=== PATIENT | male | born 1960 | race Caucasian/White ===

== ENCOUNTER → 2017-05-12 | Outpatient (CLI) | payer BC ==
[~2017-05-12] MED LIST: DICL75TA PO; GLUC1CAP16 PO; HYDR-3583 PO; LOSA100T PO; MULTTAB67 PO; OMEP20TA93 PO; PRAV40TA2 PO; WALKER WHEELS/F1 MIS
[2017-05-12 09:38] LABS: PROTHROMBIN TIME - PATIENT 10.3 SEC (9.8-11.6)
[2017-05-12 09:40] LABS: BILIRUBIN, URINE NEG (NEG); BLOOD, URINE NEG (NEG); GLUCOSE,URINE NEG (NEG); KETONE, URINE NEG (NEG); MUCUS URINE FEW /lpf (OCC); NITRITE,URINE NEG (NEG); SQUAMOUS EPITHELIAL CELL URINE <1 /hpf (0-5); URINE COLOR YELLOW (YELLW/STRAW); URINE LEUKOCYTE ESTERASE NEG (NEG)
[2017-05-12 09:45] LABS: AUTOMATED NEUTROPHIL # 4.6 TH/MM3 (1.8-7.7); BASOPHIL # 0.1 TH/MM3 (0-0.2); BASOPHIL % 0.7 % (0.0-2.0); EOSINOPHIL # 0.2 TH/MM3 (0-0.4); EOSINOPHIL % 2.8 % (0.0-4.0); HEMATOCRIT 38.7 % (39.0-51.0); HEMOGLOBIN 13.2 GM/DL (13.0-17.0); LYMPH % 24.3 % (9.0-44.0); LYMPHOCYTE # 1.8 TH/MM3 (1.0-4.8); MEAN CELL VOLUME 89.1 FL (80.0-100.0); MEAN CORPUSCULAR HEMOGLOBIN 30.3 PG (27.0-34.0); MEAN PLATELET VOLUME 8.5 FL (7.0-11.0); MONO % 9.1 % (0.0-8.0); MONOCYTE # 0.7 TH/MM3 (0-0.9); NEUT % 63.1 % (16.0-70.0); PLATELET COUNT 195 TH/MM3 (150-450); RED BLOOD COUNT 4.34 MIL/MM3 (4.50-5.90); RED CELL DISTRIBUTION WIDTH 13.9 % (11.6-17.2); WHITE BLOOD COUNT 7.3 TH/MM3 (4.0-11.0)
[2017-05-12 09:56] LABS: ALBUMIN 3.7 GM/DL (3.4-5.0); ALT (GPT) 30 U/L (12-78); AST (GOT) 15 U/L (15-37); BICARBONATE 28.3 MEQ/L (21.0-32.0); CALCIUM 9.1 MG/DL (8.5-10.1); CHLORIDE 103 MEQ/L (98-107); GLOMERULAR FILTRATION RATE 100 ML/MIN (>89); GLUCOSE,FASTING 111 MG/DL (74-99); SODIUM (NA) 139 MEQ/L (136-145)
--- NOTE | 2017-05-12 09:59 | RADRPT ---
EXAM DATE/TIME: 05/12/2017 09:36 [facility] COMPARISON: No previous studies available for comparison. INDICATIONS : Evaluate for pneumonia, pneumothorax or communicable disease. Pre op lumbar fusion. MEDICAL HISTORY : None. SURGICAL HISTORY : None. ENCOUNTER: Initial ACUITY: 1 day PAIN SCORE: 0/10 LOCATION: Bilateral chest FINDINGS: PA and lateral views of the chest demonstrate the lungs to be symmetrically aerated without evidence of mass, infiltrate or effusion. The cardiomediastinal contours are unremarkable. Degenerative craven es noted in the spine. Spinal stimulator leads present. CONCLUSION: No acute disease. Dionisio Carmona MD on May 12, 2017 at 9:57 Board Certified Radiologist. This report was verified electronically.
[2017-05-12 10:02] LABS: ALKALINE PHOSPHATASE 83 U/L (45-117); BLOOD UREA NITROGEN 25 MG/DL (7-18); TOTAL BILIRUBIN ADULT 0.3 MG/DL (0.2-1.0); TOTAL PROTEIN 7.1 GM/DL (6.4-8.2)
--- NOTE | 2017-05-12 15:16 | EKG ---
Date Performed: 05/12/2017 Time Performed: 08:57:32 PTAGE: 56 years EKG: Sinus rhythm NORMAL ECG NO PREVIOUS TRACING DOCTOR: Ward Dunn Interpretating Date/Time 05/12/2017 15:16:06
== END ==
LOC: CPRE 08:34
PROVIDERS: ATTEND Neurological Surgery
DX: Z01.812 Encounter for preprocedural laboratory examination (principal); Z01.811 Encounter for preprocedural respiratory examination; Z01.810 Encounter for preprocedural cardiovascular examination; Z01.818 Encounter for other preprocedural examination; M51.36 Other intervertebral disc degeneration, lumbar region
CPT/HCPCS: 36415; 71046; 80053; 81001; 85025; 85610; 85730; 87640; 87641; 93005

== ENCOUNTER 2017-05-18 06:17 | Inpatient (IN) | payer BC ==
[~2017-05-18] VITALS: Ht 185.4 cm; Wt 97.9 kg
[~2017-05-18 06:17] MED LIST changes: -HYDR-3583 PO; -WALKER WHEELS/F1 MIS
[2017-05-18] MEDS ORDERED: VANCOMYCIN 1,000 MG/NS 250 ML IV SCH ×2 (06:30)
[2017-05-18] MEDS ORDERED: SODIUM CHLORID 0.9% 500 ML IV PRN (06:30)
[2017-05-18] MEDS ORDERED: LACTATED RINGER'S 1000 ML IV PRN (06:30)
[2017-05-18] MEDS ORDERED: CHLORHEXIDINE GLUCONATE 2 % 1 PACK (2 CLOTHS) TOPICAL PRN (06:30)
[2017-05-18] MEDS ORDERED: METOPROLOL TARTRATE 25 MG TAB PO PRN (06:30)
[2017-05-18] MEDS ORDERED: POVIDONE IODINE 5% (ANTISEPSIS KIT) 4 APPLICATIONS EACH NARE PRN (06:30)
[2017-05-18] MEDS ORDERED: SODIUM CHLOR 0.9% 1000 ML INJ 1,000 ML IV SCH (06:30)
[2017-05-18] MEDS ORDERED: ACETAMINOPHEN 1000 MG/100 ML 100 ML IV ONE (07:11)
[2017-05-18] MEDS ORDERED: PROPOFOL 500 MG/50 ML INJ 150 ML ONE (07:11)
[2017-05-18] MEDS ORDERED: SUFentanil INJ 250 MCG/5 ML AMP ONE (07:11)
[2017-05-18] MEDS ORDERED: ARTIFICIAL TEARS OPTH OINT 3.5 APPLIC/3.5 GM TUBO ONE (07:12)
[2017-05-18] MEDS ORDERED: VANCOMYCIN HCL 1000 MG VIAL ONE (07:14)
[2017-05-18] MEDS ORDERED: GELFOAM SIZE 100 ONE (07:14)
[2017-05-18] MEDS ORDERED: ceFAZolin 2 GM PREMIX 50 ML ONE (07:14)
[2017-05-18] MEDS ORDERED: THROMBIN (TOPICAL) 5,000 UNIT VIAL ONE (07:14)
[2017-05-18] MEDS ORDERED: BUPIVACAINE/EPINEPHRINE 0.5% PF 30 ML VIAL ONE (07:14)
[2017-05-18] MEDS ORDERED: GENTAMICIN SULFATE 80 MG/2 ML VIAL ONE (07:15)
[2017-05-18] MEDS ORDERED: HEPARIN SODIUM - SQ 10,000 UNITS/ML VIAL ONE (08:31)
[2017-05-18] MEDS: CHLORHEXIDINE GLUCONATE 2 % 1 PACK (2 CLOTHS) TOPICAL SCH (09:00)
[2017-05-18] MEDS ORDERED: LIDOCAINE HCL 2% 50 ML VIAL ONE (09:22)
[2017-05-18] MEDS ORDERED: ROCURONIUM INJ 50 MG/5 ML SYRINGE IV PUSH ONE (12:00)
[2017-05-18] MEDS ORDERED: SODIUM CHLORIDE 0.9% 20 ML VIAL IV ONE (12:00)
[2017-05-18] MEDS ORDERED: PROPOFOL 200 MG/20 ML AMP IV ONE (12:00)
[2017-05-18] MEDS ORDERED: KETOROLAC TROMETHAMINE 30 MG/ML (IVP) VIAL IV PUSH ONE (12:00)
[2017-05-18] MEDS ORDERED: NORMOSOL R INJ 1,000 ML IV ONE (12:00)
[2017-05-18] MEDS ORDERED: PHENYLEPHRINE HCL 10 MG/ML VIAL IV ONE (12:00)
[2017-05-18] MEDS ORDERED: LACTATED RINGER'S 1000 ML INJ 2,000 ML IV ONE (12:00)
[2017-05-18] MEDS ORDERED: PHENYLEPH/NS 1000 MCG/10 ML SYR IV ONE (12:00)
[2017-05-18] MEDS ORDERED: LIDOCAINE HCL 1% PF 5 ML SYRINGE OTHER ONE (12:00)
[2017-05-18] MEDS ORDERED: ONDANSETRON HCL 4 MG/2 ML VIAL IV ONE (12:00)
[2017-05-18] MEDS ORDERED: DEXAMETHASONE SOD PHOS 4 MG/ML VIAL IV ONE (12:00)
[2017-05-18] MEDS ORDERED: RESP: ALBUTEROL 2.5 MG/3 ML NEB (PRN) INH (12:45)
[2017-05-18] MEDS ORDERED: ACETAMINOPHEN/HYDROcodone 325 MG/10 MG TAB PO PRN (12:45)
[2017-05-18] MEDS ORDERED: cloNIDine HCL 0.1 MG TAB PO/NG PRN (12:45)
[2017-05-18] MEDS ORDERED: ONDANSETRON HCL 4 MG/2 ML VIAL IV PUSH PRN (12:45)
[2017-05-18] MEDS ORDERED: ACETAMINOPHEN 325 MG TAB PO PRN (12:45)
[2017-05-18] MEDS ORDERED: diphenhydrAMINE HCL 50 MG/ML VIAL IV PUSH PRN (12:45)
[2017-05-18] MEDS ORDERED: BISACODYL 10 MG SUPP RECTAL PRN (12:45)
[2017-05-18] MEDS ORDERED: MORPHINE SULFATE 2 MG/ML INJ IV PUSH PRN (12:45)
[2017-05-18] MEDS ORDERED: NALOXONE HCL 0.4 MG/ML AMP IV PUSH PRN (12:45)
[2017-05-18] MEDS ORDERED: MENTHOL LOZENGE BUCCAL PRN (12:45)
[2017-05-18] MEDS ORDERED: DO NOT ADM ANY ANTICOAGULANT DRUGS PRN (14:54)
[2017-05-18] MEDS ORDERED: *MEPERIDINE 25 MG INJ VIAL PERIprocedural Use ONLY ONE (15:05)
[2017-05-18] MEDS ORDERED: MORPHINE SULFATE 4 MG/ML INJ ONE (15:12)
[2017-05-18] MEDS ORDERED: MIDAZOLAM HCL 2 MG/2 ML VIAL ONE (15:12)
[2017-05-18] MEDS ORDERED: *morphine SULFATE 10 MG/ML PERIprocedure ONLY ONE ×3 (15:13→15:45)
--- NOTE | 2017-05-18 15:19 | PD.OP ---
Operative Report Date of Surgery: May 18, 2017 Preoperative Diagnosis: L4-5, L5-S1 severe degenerative disk disease, degenerative spondylolithesis Postoperative Diagnosis: L4-5, L5-S1 severe degenerative disk disease, degenerative spondylolithesis Procedure: L4-L5, L5-S1 laminectomy, interbody arthrodhesis using PEEK cage and autologous bone graft, L4-L5, L5-S1 instrumental fixation using transpedicular screws and rods, L4-L5, L5-S1 posterolateral fusion using autologous bone graft and demineralized bone matrix. L3-4 posterolateral fusiopn using autologous bone graft and demineralized bone matrix. Microsurgical dissection Anesthesia: general Surgeon: Preston Lew Store Coordinator(s): Judith Shirley Operation and Findings: INDICATIONS FOR THE SURGICAL PROCEDURE Mr Mccartney is a 56 year-old male who presented with intractable mechanical back pain and case evidence of lower extremity radiculopathy. He has failed maximum nonsurgical management including multiple modalities of conservative treatment as well as pain management interventions by an interventional pain specialist. A surgical decompression and arthrodhesis were indicated as a last resourt. The cdfy-sy-lbed details of the procedure, indications, alternatives, risks and potential complications were fully discussed with the patient. The patient fully understood. All the questions were answered. No guarantees were given. The patient voiced requesting the procedure and provided informed consents. The patient was offered the alternative of delaying the procedure and continuing with nonsurgical management. DETAILS OF THE SURGICAL PROCEDURE Prior to the procedure, the surgical incision was marked in the preoperative surgical holding room, and the procedure, risks, and potential complications revisited with the patient. Placement of electrodes for intraoperative neurophysiological monitoring was completed. The patient was taken to the operative room, and following induction of general anesthesia, endotracheal intubation was performed. A Coleman catheter, bilateral JAMIE hose and sequential compression devices were placed and kept throughout the procedure. The patient was positioned prone, over a Gregory table over a Benjamin frame. All pressure in the preoperative surgical holding room points were carefully padded with eggcrate and gel mattress. The eyes were tapped shut after ointment was applied by the nesthesiologist to prevent corneal abrasion. A Rashmi hugger was placed over the exposed lower body to maintain control of the core body temperature. The electrophysiological team placed the needles and electrodes in their proper location and baseline SSEP's and motor evoked potentials were registered prior and following the positioning. The entrance to each pedicles was marked using a C arm. The lumbar region was prepped and draped in the usual sterile fashion. The surgical procedure was performed in several steps as follow: SURGICAL APPROACH Once the patient was positioned, a localizing cross-table lateral x-ray was performed with a C-arm. Two paramedian small incisions were outlined on the skin approximately 3cm from the midline. The skin incisions were made with a # 10 blade. Small bleeders were controlled with the cautery. The dissection was then carried out into deper planes and through the thoracolumbar fascia with a Bovie. The intermuscular septum was identified and the myscles were blunted dissected along the septum. The facets and transverse process of L4, L5 and S1 were exposed and the proper anatomical landmarks were identidied. A microsurgical self-retaining retractor was placed on the incision, and a localizing lateralizing cross-table x-ray was performed with an instrument underneath a lamina of the lumbar spine. There was a bilateral pars defect with gross instability of the bony structures. INSTRUMENTAL FIXATION At this point in the procedure, placement of bilateral transpedicular screws was necessary for stabilization of the spine. Initially, the entry point for the screw was selected anatomically at the junction of the facet, with the transverse process, and the pars interarticularis at L5 and at the sacrum. This was started with a TPS drill, using a 5mm cutting la, followed by the use of an awl, and then a pedicle finder. A ball-tip sounder was used to ensure the integrity of the trajectory. A tap was used to create the threads for the screws, and the trajectory was again reassessed with a ball-tip sounder. Finally bilateral transpedicular screws were carefully placed bilaterally at L4, L5, and and S1 under fluoroscopic visualization. An appropriate purchase was achieved with all screws. The position of each screw was assessed anatomically with an AP, lateral, oblique Xrays. An intraoperative scan view of the spine was then performed using the iso-centric c-arm. Each screw was then assessed electrophysiologically with a nerve stimulator. HARVESTING OF ILIAC CREST BONE A fascial incision was then made over the patient's right posterior iliac crest. The fascia was carefully opened with a Bovie and the posterior iliac crest was exposed. A small cortical window was created with an osteotome. Cancellous bone was then harvested, to be used during the interbody arthrodesis and the posterolateral fusion. Once an appropriate amount of bone was obtained , the incision was irrigated with antibiotic solution and hemostasis secured by packing the iliac crest with Surgicel. The cortical window was then repositioned and secured using 0 Vicryl sutures. The incision was irrigated and the fascia was closed with interrupted 0 Vicryl sutures. The subcutaneous tissue was approximated with 3-0 Vicryl sutures. SURGICAL DECOMPRESSION There was significant mass effect with compression of the neural structures. In order to relieve neural compression, it was necessary to perform a decompressive laminectomy, with decompression of the spinal canal and bilateral lateral recesses. Note that the scope of such decompression was significantly more extensive than the minimal exposure necessary to perform an interbody fusion, as there was extreme facet arthropathy with near complete collapse of the disk spaces and severe stenosis cause by the hyperthrophic joint facets. At this point of the procedure the operative microscope was draped in the usual sterile fashion and brought to the field. The rest of the surgical procedure was performed using microdissection technique with the exception of the closure. Under the operating microscope, a decompressive laminectomy was carried out at L5-S1 as follow: The laminae, base of the spinous processes and facets were carefully drilled exposing the ligamentum flavum. The facets were abnormal with severe facet arthropathy, vacuum facets, and mass effect over the neural structures. A broad disk protusion was contributing to compression of the neural structures and exiting L5, and S1 nerve roots. A near complete facetectomy was necessary resulting in further mechanical instability. The ligamentum flavum appeared hypertrophic, resulting on mass effect on the dorsal surface of the neural structures. The superior free border of the ligamentum flavum was elevated with a ligament dissector and the ligamentum flavum was removed with a 3 and 4 mm Kerrison forceps. The ligament was very adherent to the dural sac and during the dissection, ans extreme care was taken during the dissection. The exiting nerve roots were identified, and a wide foraminotomy was performed with a Kerrison in their trajectory towards the neural foramenat both levels. Epidural veins located laterally to the dural sac were coagulated with the bipolar cautery, and then incised using microscissors. Gentle medial retraction of the dural sac allowed me to expose the disc space for the discectomy. Upon completion of the discectomy, an excellent decompression of the neural structures was achieved. Increased motion was noted thorough the procedure, which was consistent with mechanical instability. INTERBODY ARTHRODHESIS In order to correct the narrowing of the disk space and maintain distraction of the space, and to achieve a solid interbody fusion, it was necessary the insertion of an interbody device into the disk space. Otherwise, the disk space would collapse, compromising the result of the surgical procedure. At this point of the procedure, the annulus fibrosus of the disk was carefully coagulated with a bipolar cautery and incised using an 11 bladed knife. Then, a microdiscectomy was carried out in a standard fashion using a combination of straight and up-biting pituitary forceps. A reverse angle curette was applied underneath the posterior longitudinal ligament, and used to push the disk fragments into the disk space, so they can be safely removed with a pituitary forceps. Once the discectomy was completed, it was necessary to decorticate the endplates, in order to eliminate the cartilaginous endplate and to expose healthy bone appropriate to perform the interbody fusion. The endplates at L4-5 , and L5-S1 were then thoroughly decorticated using increasing size bone isa and ring curets, eliminating the cartilaginous fragments from both, the superior and inferior endplates. A disk space distractor was applied to the pedicle screws and gentle distraction was applied. This maneuver was assisted by the use of a disk distractor. Increased motility was noted at the disk, which was consistent with instability due to facet arthropathy. Once a thorough preparation of the disk space was achieved, the disk space was irrigated with antibiotic solution, and the interbody fusion was performed by carefully impacting PPEK cages filled with autologous iliac crest bone graft. The use of several shoe impactors with different angulation, allowed me for an excellent, proper position of the interbody cage. A solid position of the cage with good purchase was achieved. The position of the cages were assessed anatomically with a probe and radiologically with the C-arm. POSTEROLATERAL FUSION The posterolateral fusion is a critical component to the procedure, to prevent future fatigue and failure of the instrumental fixation. Initially, the transverse processes of the vertebral bodies, lateral surface of the facets and the lateral gutters of the spine were carefully cleaned, eliminating all soft tissue and muscle attachments. The area was then irrigated with a large amount of antibiotic solution. Subsequently, the transverse processes, lateral surface of the facets, and lateral gutters of the spine were thoroughly decorticated using the TPS drill with a 5mm cutting la, exposing cancellous bone, in preparation for the posterolateral fusion. The incision was again irrigated with antibiotic solution. Then, the posterolateral fusion was then performed by carefully packing the lateral gutters of the spine at L4-5, and L5-S1 with autologous iliac crest bone combined with demineralized bone matrix. The facets at L3-4 on the right side werte decorticated, and a posterolateral fusion was done with autologous bone graft combined with demineralized bone matric. I packed as much bone as possible. COMPLETION OF THE INSTRUMENTATION AND CLOSURE The rods were brought to the field, applied to all the screws, and the screw caps were sequentially applied. Compression was performed between the pedicle screws, and final tightening of the screws was completed using a torque wrench. The incision was again thoroughly irrigated with several liters of antibiotic solution, and hemostasis secured with the bipolar cautery. A Valsalva Maneuver performed by the anesthesiologist failed to show any evidence of cerebrospinal fluid leak or bleeding. The incision was then closed in planes. 0 Vicryl was used in an interrupted fashion to close the thoracolumbar fascia and the superficial fascia. The subcutaneous tissue was then approximated using 3-0 Vicryl in an interrupted fashion. Special care was taken to avoid space. The skin was then closed with 4-0 Vicryl in a running, subcuticular fashion. Dermabond was applied to the skin. Each plane of closure was irrigated with antibiotic solution. At the end of the procedure the sponge, needle and instrument counts were all correct. Estimated blood loss was 150 cc or less. No blood transfusion was given. The entire procedure was performed using continuous electrophysiological monitoring of the somatosensorial evoked potentials and EMG. The patient received prophylactic antibiotics. The patient was then extubated and transferred to the recovery room in stable condition. Preston Lew MD May 18, 2017 15:19
[2017-05-18] MEDS: SODIUM CHLOR 0.9% 1000 ML INJ 1,000 ML IV SCH (16:00)
[2017-05-18] MEDS: ceFAZolin 2 GM PREMIX 50 ML IV SCH (16:20)
--- NOTE | 2017-05-18 17:32 | RADRPT ---
EXAM DATE/TIME: 05/18/2017 10:02 [facility] COMPARISON: No previous studies available for comparison. INDICATIONS : Fusion L4,L5 and L5,S1 with screw and timothy placement. MEDICAL HISTORY : None. SURGICAL HISTORY : None. ENCOUNTER: Initial ACUITY: 1 day PAIN SCORE: Non-responsive. LOCATION: Lumbar spine. FINDINGS: There is anterior and posterior fusion with pedicle screws and interbody graft from L4-S1. The verteb ral bodies are normal in alignment on the lateral view. CONCLUSION: Postsurgical changes as above. Rick Vines MD on May 18, 2017 at 17:31 Board Certified Radiologist. This report was verified electronically.
[2017-05-18 18:30] VITALS: BP 126/81; PULSE 79; RESP 18; TEMP 96.9; O2SAT 96
[2017-05-18 20:00] VITALS: BP 123/75; PULSE 82; RESP 16; TEMP 96.7; O2SAT 95
[2017-05-18] MEDS: DOCUSATE SODIUM 100 MG CAP PO SCH (20:00)
[2017-05-18] MEDS ORDERED: GLUCOSAMINE CHONDROITIN VIT C PO SCH (21:00)
[2017-05-18] MEDS: HYDROmorphone HCL PCA 6 MG/30 ML IV SCH (21:37)
[2017-05-18] MEDS: PCA - TOTAL MG DILAUDID DELIVERED PER SHIFT SCH (21:37)
[2017-05-19] VITALS: BP 111/70; PULSE 81; RESP 16; TEMP 98.3; O2SAT 97
[2017-05-19] MEDS: ceFAZolin 2 GM PREMIX 50 ML IV SCH ×2 (00:39→08:59)
[2017-05-19] MEDS: SODIUM CHLOR 0.9% 1000 ML INJ 1,000 ML IV SCH ×3 (00:39→17:44)
[2017-05-19] MEDS: CYCLOBENZAPRINE HCL 10 MG TAB PO PRN (00:46)
[2017-05-19] MEDS: HYDROmorphone HCL PCA 6 MG/30 ML IV SCH ×4 (00:50→19:16)
[2017-05-19 04:00] VITALS: BP 113/75; PULSE 86; RESP 18; TEMP 98; O2SAT 97
[2017-05-19] MEDS: PCA - TOTAL MG DILAUDID DELIVERED PER SHIFT SCH ×3 (05:52→22:00)
[2017-05-19 06:25] LABS: AUTOMATED NEUTROPHIL # 8.1 TH/MM3 (1.8-7.7); BASOPHIL % 0.1 % (0.0-2.0); HEMATOCRIT 33.8 % (39.0-51.0); HEMOGLOBIN 11.5 GM/DL (13.0-17.0); LYMPH % 9.3 % (9.0-44.0); LYMPHOCYTE # 0.9 TH/MM3 (1.0-4.8); MEAN CORPUSCULAR HEMOGLOBIN 30.3 PG (27.0-34.0); MEAN PLATELET VOLUME 8.1 FL (7.0-11.0); MONO % 10.5 % (0.0-8.0); MONOCYTE # 1.1 TH/MM3 (0-0.9); NEUT % 80.1 % (16.0-70.0); PLATELET COUNT 181 TH/MM3 (150-450); RED BLOOD COUNT 3.79 MIL/MM3 (4.50-5.90); RED CELL DISTRIBUTION WIDTH 13.7 % (11.6-17.2); WHITE BLOOD COUNT 10.2 TH/MM3 (4.0-11.0)
[2017-05-19 06:48] LABS: BICARBONATE 25.4 MEQ/L (21.0-32.0); CALCIUM 8.1 MG/DL (8.5-10.1); CREATININE 0.69 MG/DL (0.60-1.30)
[2017-05-19 07:56] VITALS: BP 122/83; PULSE 89; RESP 17; TEMP 98.2; O2SAT 96
[2017-05-19] MEDS: DOCUSATE SODIUM 100 MG CAP PO SCH ×2 (08:59→20:53)
[2017-05-19] MEDS: MULTIVITAMIN TAB PO SCH (08:59)
[2017-05-19] MEDS: PANTOPRAZOLE SOD 40 MG DELAYED RELEASE TAB PO SCH (08:59)
[2017-05-19] MEDS: PRAVASTATIN SOD 40 MG TAB PO SCH (08:59)
[2017-05-19] MEDS: CHLORHEXIDINE GLUCONATE 2 % 1 PACK (2 CLOTHS) TOPICAL SCH (09:00)
[2017-05-19] MEDS: LOSARTAN 50 MG TAB PO SCH (09:00)
--- NOTE | 2017-05-19 09:24 | HHI.NSPN ---
(Shruthi Shukla) Note Status Status: Progress Note (Shruthi Shukla) Interval History Interval History Mr. Mccartney underwent L4-L5, L5-S1 laminectomy, interbody arthrodhesis using PEEK cage and autologous bone graft, L4-L5, L5-S1 instrumental fixation using transpedicular screws and rods, L4-L5, L5-S1 posterolateral fusion using autologous bone graft and demineralized bone matrix. L3-4 posterolateral fusiopn using autologous bone graft and demineralized bone matrix on May 18, 2017 for L4-5, L5-S1 severe degenerative disk disease, degenerative spondylolithesis 05/19: doing well, surgical pain controlled on PUTTER IN. reports prior radicular pain improved. (Shruthi Shukla) Labs, Micro, & Vital Signs Results Date Time Temp Pulse Resp B/P (MAP) Pulse Ox O2 Delivery O2 Flow Rate FiO2 05/19/17 07:56 98.2 89 17 122/83 (96) 96 05/19/17 06:54 17 05/19/17 05:52 18 05/19/17 04:00 98.0 86 18 113/75 (88) 97 05/19/17 01:34 18 05/19/17 00:50 18 05/19/17 00:00 98.3 81 16 111/70 (84) 97 05/18/17 21:37 17 05/18/17 21:37 17 05/18/17 20:00 96.7 82 16 123/75 (91) 95 05/18/17 18:30 96.9 79 18 126/81 (96) 96 05/18/17 18:00 80 16 124/76 (92) 97 Room Air 05/18/17 17:00 82 16 113/70 (84) 97 Room Air 05/18/17 16:30 88 16 117/70 (86) 96 Room Air 05/18/17 16:00 86 16 107/69 (82) 95 Room Air 05/18/17 15:45 88 16 109/67 (81) 96 Room Air 2/27/18 15:30 90 16 108/66 (80) 95 Room Air 05/18/17 15:15 86 16 108/71 (83) 97 Room Air 05/18/17 15:00 86 16 100/60 (73) 95 Room Air 05/18/17 14:54 99.1 94 16 107/60 (76) 93 Constitutional Vital Signs Date Time Temp Pulse Resp B/P (MAP) Pulse Ox O2 Delivery O2 Flow Rate FiO2 05/19/17 07:56 98.2 89 17 122/83 (96) 96 05/19/17 06:54 17 05/19/17 05:52 18 05/19/17 04:00 98.0 86 18 113/75 (88) 97 05/19/17 01:34 18 05/19/17 00:50 18 05/19/17 00:00 98.3 81 16 111/70 (84) 97 05/18/17 21:37 17 05/18/17 21:37 17 05/18/17 20:00 96.7 82 16 123/75 (91) 95 05/18/17 18:30 96.9 79 18 126/81 (96) 96 05/18/17 18:00 80 16 124/76 (92) 97 Room Air 05/18/17 17:00 82 16 113/70 (84) 97 Room Air 05/18/17 16:30 88 16 117/70 (86) 96 Room Air 05/18/17 16:00 86 16 107/69 (82) 95 Room Air 05/18/17 15:45 88 16 109/67 (81) 96 Room Air 05/18/17 15:30 90 16 108/66 (80) 95 Room Air 05/18/17 15:15 86 16 108/71 (83) 97 Room Air 05/18/17 15:00 86 16 100/60 (73) 95 Room Air 05/18/17 14:54 99.1 94 16 107/60 (76) 93 (Shruthi Shukla) Review of Systems Constitutional: DENIES: Fever Musculoskeletal: COMPLAINS OF: Back pain Neurologic: DENIES: Headache Psychiatric: DENIES: Confusion (Shruthi Shukla) Physical Exam Mr. Mccartney is alert, awake. Speech is fluent. Cranial nerve examination: pupils equal, round, and reactive to light. Facial motor are normal and symmetrical. Neck is soft and supple. Musculoskeletal: moves all four extremities. No extremity edema. Respiratory: clear, no wheezes (Shruthi Shukla) Medications Current Medications Current Medications Medications (Trade) Dose Ordered Sig/Feliberto Route PRN Reason Start Time Stop Time Status Last Admin Dose Admin Metoprolol Tartrate (Lopressor) 25 mg SUPERVISOR QUILTING PRN PO SEE LABEL COMMENTS 05/18/17 06:30 05/21/17 06:29 Povidone Iodine (Betadine 5% Antisepsis Kit) 1 applic SUPERVISOR QUILTING PRN EACH NARE SEE LABEL COMMENTS 05/18/17 06:30 05/21/17 06:29 05/18/17 06:30 Chlorhexidine Gluconate (Chlorhexidine 2% Cloth) 3 pack SUPERVISOR QUILTING PRN TOPICAL SEE LABEL COMMENTS 05/18/17 06:30 05/21/17 06:29 05/18/17 06:15 Vancomycin HCl 1000 mg/Sodium Chloride 250 ml @ 250 mls/hr SUPERVISOR QUILTING IV 05/18/17 06:30 05/18/17 10:56 Chlorhexidine Gluconate (Chlorhexidine 2% Cloth) 1 pack DAILY TOPICAL 05/18/17 09:00 05/20/17 09:01 Sodium Chloride 1,000 ml @ 100 mls/hr Q10H IV 05/18/17 12:35 05/19/17 00:39 Cefazolin Sodium/ Dextrose 50 ml @ 100 mls/hr Q8H IV 05/18/17 17:00 05/19/17 09:29 05/19/17 08:59 Bisacodyl (Dulcolax Supp) 10 mg DAILY PRN RECTAL SEVERE CONSTIPATION 05/18/17 12:45 Docusate Sodium (Colace) 100 mg BID PO 05/18/17 21:00 05/19/17 08:59 Magnesium Hydroxide (Milk Of Magnesia Liq) 30 ml DAILY PRN PO CONSTIPATION 05/18/17 12:45 Pantoprazole Sodium (Protonix) 40 mg DAILY PO 05/19/17 09:00 05/19/17 08:59 Ondansetron HCl (Zofran Inj) 4 mg Q6H PRN IV PUSH NAUSEA OR VOMITING 05/18/17 12:45 Morphine Sulfate (Morphine Inj) 2 mg Q2H PRN IV PUSH breakthrough pain 05/18/17 12:45 Cyclobenzaprine HCl (Flexeril) 10 mg Q8H PRN PO MUSCLE SPASM 05/18/17 12:45 05/19/17 00:46 Clonidine (Catapres) 0.1 mg Q6H PRN PO/NG SYS BP GREATER THAN 170 MMHG 05/18/17 12:45 Acetaminophen (Tylenol) 650 mg Q4H PRN PO TEMPERATURE > 101.5 F 05/18/17 12:45 Menthol (Surrency Jose) 1 lozenge UNSCH PRN BUCCAL SORE THROAT 05/18/17 12:45 Albuterol Sulfate (Albuterol Neb) 2.5 mg Q4HR NEB PRN INH WHEEZING 05/18/17 12:45 Naloxone HCl (Narcan Inj) 0.4 mg UNSCH PRN IV PUSH RESPIRATORY RATE LESS THAN 10 05/18/17 12:45 Diphenhydramine HCl (Benadryl Inj) 25 mg Q6H PRN IV PUSH ITCHING 05/18/17 12:45 Hydromorphone HCl (Dilaudid PUTTER IN Inj) 6 mg UNSCH IV 05/18/17 12:45 05/19/17 06:54 PUTTER IN Dosage Infused (Pha) 1 Q8HR .XX 05/18/17 14:00 05/19/17 05:52 Acetaminophen/ Hydrocodone Bitart ([place] 10-325 Mg) 1 tab Q4H PRN PO PAIN SCALE 1 TO 5 05/18/17 12:45 Acetaminophen/ Hydrocodone Bitart ([place] 10-325 Mg) 2 tab Q4H PRN PO PAIN SCALE 6 TO 10 05/18/17 12:45 Losartan Potassium (Cozaar) 100 mg DAILY PO 05/19/17 09:00 05/19/17 09:00 Pravastatin Sodium (Pravachol) 40 mg DAILY PO 05/19/17 09:00 05/19/17 08:59 Multivitamins (Theragran) 1 tab DAILY PO 05/19/17 09:00 05/19/17 08:59 Miscellaneous Information ALL NURSING DEPARTME... UNSCH PRN .XX SEE LABEL COMMENTS 05/18/17 14:54 05/19/17 14:53 Pneumococcal Polyvalent Vaccine (Pneumovax-23 Inj) 25 mcg ONCE ONCE IM 05/19/17 10:00 05/19/17 10:01 Influenza Virus Vaccine (Flu (Quadrivalent) Vaccine Inj) 0.5 ml ONCE ONCE IM 05/19/17 10:00 05/19/17 10:01 (Shruthi Shukla) Medical Decision Making MDM Remarks 56 y/o male s/p L4-L5, L5-S1 laminectomy, interbody arthrodesis using PEEK cage and autologous bone graft, L4-L5, L5-S1 instrumental fixation using transpedicular screws and rods, L4-L5, L5-S1 posterolateral fusion using autologous bone graft and demineralized bone matrix, L3-4 posterolateral fusion using autologous bone graft and demineralized bone matrix on 05/18/17 (Shruthi Shukla) Plan Plan Remarks cont current pain mgt IS every hour cont bed rest today per Dr. Lew OOB with PT tomorrow log roll every 2 hours SCDs and TEDs, also start lovenox for dvt prophylaxis (Shruthi Shukla) Attending Statement The exam, history, and the medical decision-making described in the above note were completed with the assistance of the mid-level provider. I reviewed and agree with the findings presented. I attest that I had a [id number] encounter with the patient on the same day, and personally performed and documented my assessment and findings in the medical record. (Preston Lew MD) Shruthi Shukla May 19, 2017 09:24 Preston Lew MD May 23, 2017 21:04
[2017-05-19] MEDS ORDERED: INFLUENZA VIRUS VACCINE (QUADRIVALENT) 0.5 ML SYR IM ONE (10:00)
[2017-05-19] MEDS ORDERED: PNEUMOCOCCAL POLYVALENT INJ 25 MCG/0.5 ML SYR IM ONE (10:00)
[2017-05-19] MEDS: ENOXAPARIN SODIUM 40 MG/0.4 ML SYRINGE SQ SCH (11:00)
[2017-05-19 11:45] VITALS: BP 120/75; PULSE 99; RESP 17; TEMP 98.7; O2SAT 91
--- NOTE | 2017-05-19 14:03 | PD.CONS ---
HPI Service [facility] Hospitalists Consult Requested By Dr Lew Reason for Consult Medical management Primary Care Physician Dionisio Lucero MD Diagnoses: History of Present Illness This is a 56-year-old male with past medical history of hypertension hyperlipidemia who presents to [facility] for an elective spinal surgery. The patient has history of mechanical back pain and case evidence of lower extremity radiculopathy. As per records from neurosurgery the patient has failed maximum nonsurgical management including multiple modalities of conservative treatment as well as pain management interventions by interventional pain specialist. Surgical decompression and arthrodesis were indicated as a last resort. The patient is status post laminectomy and complains of mild to moderate back pain, however denies nausea, vomiting, dizziness, chest pain, shortness of breath, dysuria, diarrhea. Review of Systems As per HPI, other systems reviewed by me and negative. Past Family Social History Allergies: Coded Allergies: No Known Allergies (Unverified , 05/12/17) Past Medical History 1. Hypertension. 2. Hyperlipidemia. Past Surgical History 1. Spinal stimulator. 2. Bilateral inguinal hernia repair. Reported Medications Reported Meds & Active Scripts Active Reported Glucosamine Chondroitin (Exfrskmagdi-Vuikcwvgeew-Eyu C-) 500 Mg-400 Mg Cap 1 Tab PO BID Multiple Vitamin 1 Tab 1 Tab PO DAILY Omeprazole 20 Mg Tab 20 Mg PO DAILY Diclofenac Sodium DR (Diclofenac Sodium) 75 Mg Tabdr 75 Mg PO BID Pravastatin 40 Mg Tab 40 Mg PO DAILY Losartan (Losartan Potassium) 100 Mg Tab 100 Mg PO DAILY Active Ordered Medications Current Medications Medications (Trade) Dose Ordered Sig/Feliberto Route Start Time Stop Time Status Last Admin (Lopressor) 25 mg WEB COORDINATOR PRN PO 05/18/17 06:30 05/21/17 06:29 (Betadine 5% Antisepsis Kit) 1 applic WEB COORDINATOR PRN EACH NARE 05/18/17 06:30 05/21/17 06:29 05/18/17 06:30 (Chlorhexidine 2% Cloth) 3 pack WEB COORDINATOR PRN TOPICAL 05/18/17 06:30 05/21/17 06:29 05/18/17 06:15 Vancomycin HCl 1000 mg/Sodium Chloride 250 ml @ 250 mls/hr WEB COORDINATOR IV 05/18/17 06:30 05/18/17 10:56 (Chlorhexidine 2% Cloth) 1 pack DAILY TOPICAL 05/18/17 09:00 05/20/17 09:01 Sodium Chloride 1,000 ml @ 100 mls/hr Q10H IV 05/18/17 12:35 05/19/17 00:39 (Dulcolax Supp) 10 mg DAILY PRN RECTAL 05/18/17 12:45 (Colace) 100 mg BID PO 05/18/17 21:00 05/19/17 08:59 (Milk Of Magnesia Liq) 30 ml DAILY PRN PO 05/18/17 12:45 (Protonix) 40 mg DAILY PO 05/19/17 09:00 05/19/17 08:59 (Zofran Inj) 4 mg Q6H PRN IV PUSH 05/18/17 12:45 (Morphine Inj) 2 mg Q2H PRN IV PUSH 05/18/17 12:45 (Flexeril) 10 mg Q8H PRN PO 05/18/17 12:45 05/19/17 00:46 (Catapres) 0.1 mg Q6H PRN PO/NG 05/18/17 12:45 (Tylenol) 650 mg Q4H PRN PO 05/18/17 12:45 ([place]) 1 lozenge UNSCH PRN BUCCAL 05/18/17 12:45 (Albuterol Neb) 2.5 mg Q4HR NEB PRN INH 05/18/17 12:45 (Narcan Inj) 0.4 mg UNSCH PRN IV PUSH 05/18/17 12:45 (Benadryl Inj) 25 mg Q6H PRN IV PUSH 05/18/17 12:45 (Dilaudid SUPERVISOR COATING Inj) 6 mg UNSCH IV 05/18/17 12:45 05/19/17 12:55 SUPERVISOR COATING Dosage Infused (Pha) 1 Q8HR .XX 05/18/17 14:00 05/19/17 05:52 ([place] 10-325 Mg) 1 tab Q4H PRN PO 05/18/17 12:45 ([place] 10-325 Mg) 2 tab Q4H PRN PO 05/18/17 12:45 (Cozaar) 100 mg DAILY PO 05/19/17 09:00 05/19/17 09:00 (Pravachol) 40 mg DAILY PO 05/19/17 09:00 05/19/17 08:59 (Theragran) 1 tab DAILY PO 05/19/17 09:00 05/19/17 08:59 Miscellaneous Information ALL NURSING DEPARTME... UNSCH PRN .XX 05/18/17 14:54 05/19/17 14:53 (Lovenox Inj) 40 mg Q24H SQ 05/19/17 10:00 05/19/17 11:00 Family History Patient's father is and had diabetes mellitus. Patient's mother has hypertension and is alive. Social History The patient denies alcohol use. The patient states he is a former smoker quit smoking 10 years ago. Denies illicit drug use. The patient is a and . The patient has been living with her domestic partner for 10 years and wishes to designate her as he is healthcare surrogate in case that he is not able to make medical decisions. Physical Exam Vital Signs Vital Signs Date Time Temp Pulse Resp B/P (MAP) Pulse Ox O2 Delivery O2 Flow Rate FiO2 05/19/17 12:55 18 05/19/17 11:45 98.7 99 17 120/75 (90) 91 05/19/17 07:56 98.2 89 17 122/83 (96) 96 05/19/17 06:54 17 05/19/17 05:52 18 05/19/17 04:00 98.0 86 18 113/75 (88) 97 05/19/17 01:34 18 05/19/17 00:50 18 05/19/17 00:00 98.3 81 16 111/70 (84) 97 05/18/17 21:37 17 05/18/17 21:37 17 05/18/17 20:00 96.7 82 16 123/75 (91) 95 05/18/17 18:30 96.9 79 18 126/81 (96) 96 05/18/17 18:00 80 16 124/76 (92) 97 Room Air 05/18/17 17:00 82 16 113/70 (84) 97 Room Air 05/18/17 16:30 88 16 117/70 (86) 96 Room Air 05/18/17 16:00 86 16 107/69 (82) 95 Room Air 05/18/17 15:45 88 16 109/67 (81) 96 Room Air 05/18/17 15:30 90 16 108/66 (80) 95 Room Air 05/18/17 15:15 86 16 108/71 (83) 97 Room Air 05/18/17 15:00 86 16 100/60 (73) 95 Room Air 05/18/17 14:54 99.1 94 16 107/60 (76) 93 Physical Exam GENERAL: This is a well-nourished, well-developed patient, in no apparent distress. SKIN: No rashes, ecchymoses or lesions. Cool and dry. HEAD: Atraumatic. Normocephalic. No temporal or scalp tenderness. EYES: Pupils equal round and reactive. Extraocular motions intact. No scleral icterus. No injection or drainage. ENT: Nose without bleeding, purulent drainage or septal hematoma. Throat without erythema, tonsillar hypertrophy or exudate. Uvula midline. Airway patent. NECK: Trachea midline. No JVD or lymphadenopathy. Supple, nontender, no meningeal signs. CARDIOVASCULAR: Regular rate and rhythm without murmurs, gallops, or rubs. RESPIRATORY: Clear to auscultation. Breath sounds equal bilaterally. No wheezes , rales, or rhonchi. GASTROINTESTINAL: Abdomen soft, non-tender, nondistended. No hepato-splenomegaly , or palpable masses. No guarding. MUSCULOSKELETAL: Extremities without clubbing, cyanosis, or edema. No joint tenderness, effusion, or edema noted. No calf tenderness. Negative Homans sign bilaterally. NEUROLOGICAL: Awake and alert. Cranial nerves II through XII intact. Motor and sensory grossly within normal limits. Five out of 5 muscle strength in all muscle groups. Normal speech. Laboratory Laboratory Tests Test 05/19/17 05:36 White Blood Count 10.2 Red Blood Count 3.79 Hemoglobin 11.5 Hematocrit 33.8 Mean Corpuscular Volume 89.0 Mean Corpuscular Hemoglobin 30.3 Mean Corpuscular Hemoglobin Concent 34.0 Red Cell Distribution Width 13.7 Platelet Count 181 Mean Platelet Volume 8.1 Neutrophils (%) (Auto) 80.1 Lymphocytes (%) (Auto) 9.3 Monocytes (%) (Auto) 10.5 Eosinophils (%) (Auto) 0.0 Basophils (%) (Auto) 0.1 Neutrophils # (Auto) 8.1 Lymphocytes # (Auto) 0.9 Monocytes # (Auto) 1.1 Eosinophils # (Auto) 0.0 Basophils # (Auto) 0.0 CBC Comment DIFF FINAL Differential Comment Blood Urea Nitrogen 17 Creatinine 0.69 Random Glucose 121 Calcium Level 8.1 Sodium Level 141 Potassium Level 3.8 Chloride Level 107 Carbon Dioxide Level 25.4 Anion Gap 9 Estimat Glomerular Filtration Rate 119 Result Diagram: 05/19/17 0536 05/19/17 0536 Imaging Last Impressions Lumbar Spine X-Ray 05/18/17 0000 Signed Impressions: Service Date/Time: Thursday, May 18, 2017 10:02 - CONCLUSION: Postsurgical changes as above. Rick Vines MD Assessment and Plan Problem List: (1) Degenerative disc disease, lumbar ICD Code: M51.36 - Other intervertebral disc degeneration, lumbar region Plan: The patient is status post L4-L5, L5-S1 laminectomy, interbody arthrodesis, segmental fixation using transpedicular screws and rods. L4-L5, L5 -S1 posterolateral fusion using autologous bone graft and demineralized bone matrix. L3-L4 posterolateral fusion using autologous bone graft and demineralized bone matrix. Management as per neurosurgery. Continue pain control as per orthopedic surgery Patient currently on a SUPERVISOR COATING morphine pump. Zofran as needed for nausea vomiting. (2) HTN (hypertension) ICD Code: I10 - Essential (primary) hypertension Plan: Blood pressure seems to be stable. Continue losartan and continue to monitor vital signs. (3) Hyperlipidemia ICD Code: E78.5 - Hyperlipidemia, unspecified Plan: Continue statin. Check fasting lipid profile. Assessment and Plan DVT prophylaxis: SCDs, and Lovenox subcu as per neurosurgery. Code Status Full code Discussed Condition With Patient, Problem Qualifiers (1) HTN (hypertension): Qualified Codes: I10 - Essential (primary) hypertension (2) Hyperlipidemia: Qualified Codes: E78.5 - Hyperlipidemia, unspecified Adrian Yeung MD May 19, 2017 14:03
[2017-05-19 20:53] VITALS: BP 114/71; PULSE 99; RESP 18; TEMP 98; O2SAT 95
[2017-05-19 23:24] VITALS: BP 117/72; PULSE 95; RESP 19; TEMP 98.4; O2SAT 96
[2017-05-20] MEDS: SODIUM CHLOR 0.9% 1000 ML INJ 1,000 ML IV SCH ×2 (04:47→14:03)
[2017-05-20 04:50] VITALS: BP 130/79; PULSE 96; RESP 18; TEMP 99.7; O2SAT 97
[2017-05-20] MEDS: ACETAMINOPHEN/HYDROcodone 325 MG/10 MG TAB PO PRN ×4 (04:50→17:50)
[2017-05-20] MEDS: HYDROmorphone HCL PCA 6 MG/30 ML IV SCH ×3 (05:00→22:17)
[2017-05-20] MEDS: PCA - TOTAL MG DILAUDID DELIVERED PER SHIFT SCH ×3 (06:00→21:46)
[2017-05-20 08:05] VITALS: BP 128/83; PULSE 97; RESP 18; TEMP 98.3; O2SAT 95
[2017-05-20] MEDS: PANTOPRAZOLE SOD 40 MG DELAYED RELEASE TAB PO SCH (08:20)
[2017-05-20] MEDS: MAGNESIUM HYDROXIDE SUSP 30 ML CUP PO PRN (08:20)
[2017-05-20] MEDS: LOSARTAN 50 MG TAB PO SCH (08:20)
[2017-05-20] MEDS: MULTIVITAMIN TAB PO SCH (08:20)
[2017-05-20] MEDS: DOCUSATE SODIUM 100 MG CAP PO SCH ×2 (08:20→19:49)
[2017-05-20] MEDS: CYCLOBENZAPRINE HCL 10 MG TAB PO PRN ×2 (08:20→19:49)
[2017-05-20] MEDS: PRAVASTATIN SOD 40 MG TAB PO SCH (08:20)
[2017-05-20] MEDS: ENOXAPARIN SODIUM 40 MG/0.4 ML SYRINGE SQ SCH (08:26)
[2017-05-20] MEDS: CHLORHEXIDINE GLUCONATE 2 % 1 PACK (2 CLOTHS) TOPICAL SCH (09:00)
--- NOTE | 2017-05-20 09:29 | HHI.NSPN ---
(Shruthi Shukla) Note Status Status: Progress Note (Shruthi Shukla) Interval History Interval History Mr. Mccartney underwent L4-L5, L5-S1 laminectomy, interbody arthrodhesis using PEEK cage and autologous bone graft, L4-L5, L5-S1 instrumental fixation using transpedicular screws and rods, L4-L5, L5-S1 posterolateral fusion using autologous bone graft and demineralized bone matrix. L3-4 posterolateral fusiopn using autologous bone graft and demineralized bone matrix on May 18, 2017 for L4-5, L5-S1 severe degenerative disk disease, degenerative spondylolithesis 05/19: doing well, surgical pain controlled on BOX COVERER HAND. reports prior radicular pain improved. 05/20: continues to do well, surgical pain controlled on BOX COVERER HAND, no chest pain, SOB, difficulty breathing. (Shruthi Shukla) Labs, Micro, & Vital Signs Results Date Time Temp Pulse Resp B/P (MAP) Pulse Ox O2 Delivery O2 Flow Rate FiO2 05/20/17 08:05 98.3 97 18 128/83 (98) 95 05/20/17 06:00 18 05/20/17 05:50 18 05/20/17 05:30 18 05/20/17 05:00 18 05/20/17 04:50 99.7 96 18 130/79 (96) 97 05/19/17 23:24 98.4 95 19 117/72 (87) 96 05/19/17 22:00 4 05/19/17 20:53 98.0 99 18 114/71 (85) 95 05/19/17 19:16 19 05/19/17 14:00 18 05/19/17 12:55 18 05/19/17 11:45 98.7 99 17 120/75 (90) 91 Constitutional Vital Signs Date Time Temp Pulse Resp B/P (MAP) Pulse Ox O2 Delivery O2 Flow Rate FiO2 05/20/17 08:05 98.3 97 18 128/83 (98) 95 05/20/17 06:00 18 3/1/18 05:50 18 05/20/17 05:30 18 05/20/17 05:00 18 05/20/17 04:50 99.7 96 18 130/79 (96) 97 05/19/17 23:24 98.4 95 19 117/72 (87) 96 05/19/17 22:00 4 05/19/17 20:53 98.0 99 18 114/71 (85) 95 05/19/17 19:16 19 05/19/17 14:00 18 05/19/17 12:55 18 05/19/17 11:45 98.7 99 17 120/75 (90) 91 (Shruthi Shukla) Physical Exam Mr. Mccartney is alert, awake. Speech is fluent. Cranial nerve examination: pupils equal, round. Facial motor are normal and symmetrical. Musculoskeletal: moves all four extremities. No extremity edema. Respiratory: clear, no wheezes (Shruthi Shukla) Medications Current Medications Current Medications Medications (Trade) Dose Ordered Sig/Feliberto Route PRN Reason Start Time Stop Time Status Last Admin Dose Admin Metoprolol Tartrate (Lopressor) 25 mg FINGERER PRN PO SEE LABEL COMMENTS 05/18/17 06:30 05/21/17 06:29 Povidone Iodine (Betadine 5% Antisepsis Kit) 1 applic FINGERER PRN EACH NARE SEE LABEL COMMENTS 05/18/17 06:30 05/21/17 06:29 05/18/17 06:30 Chlorhexidine Gluconate (Chlorhexidine 2% Cloth) 3 pack FINGERER PRN TOPICAL SEE LABEL COMMENTS 05/18/17 06:30 05/21/17 06:29 05/18/17 06:15 Vancomycin HCl 1000 mg/Sodium Chloride 250 ml @ 250 mls/hr FINGERER IV 05/18/17 06:30 05/18/17 10:56 Sodium Chloride 1,000 ml @ 100 mls/hr Q10H IV 05/18/17 12:35 05/20/17 04:47 Bisacodyl (Dulcolax Supp) 10 mg DAILY PRN RECTAL SEVERE CONSTIPATION 05/18/17 12:45 Docusate Sodium (Colace) 100 mg BID PO 05/18/17 21:00 05/20/17 08:20 Magnesium Hydroxide (Milk Of Magnesia Liq) 30 ml DAILY PRN PO CONSTIPATION 05/18/17 12:45 05/20/17 08:20 Pantoprazole Sodium (Protonix) 40 mg DAILY PO 05/19/17 09:00 05/20/17 08:20 Ondansetron HCl (Zofran Inj) 4 mg Q6H PRN IV PUSH NAUSEA OR VOMITING 05/18/17 12:45 Morphine Sulfate (Morphine Inj) 2 mg Q2H PRN IV PUSH breakthrough pain 05/18/17 12:45 Cyclobenzaprine HCl (Flexeril) 10 mg Q8H PRN PO MUSCLE SPASM 05/18/17 12:45 05/20/17 08:20 Clonidine (Catapres) 0.1 mg Q6H PRN PO/NG SYS BP GREATER THAN 170 MMHG 05/18/17 12:45 Acetaminophen (Tylenol) 650 mg Q4H PRN PO TEMPERATURE > 101.5 F 05/18/17 12:45 05/19/17 18:27 Menthol ([place] Jose) 1 lozenge UNSCH PRN BUCCAL SORE THROAT 05/18/17 12:45 Albuterol Sulfate (Albuterol Neb) 2.5 mg Q4HR NEB PRN INH WHEEZING 05/18/17 12:45 Naloxone HCl (Narcan Inj) 0.4 mg UNSCH PRN IV PUSH RESPIRATORY RATE LESS THAN 10 05/18/17 12:45 Diphenhydramine HCl (Benadryl Inj) 25 mg Q6H PRN IV PUSH ITCHING 05/18/17 12:45 Hydromorphone HCl (Dilaudid BOX COVERER HAND Inj) 6 mg UNSCH IV 05/18/17 12:45 05/20/17 05:00 BOX COVERER HAND Dosage Infused (Pha) 1 Q8HR .XX 05/18/17 14:00 05/20/17 06:00 Acetaminophen/ Hydrocodone Bitart ([place] 10-325 Mg) 1 tab Q4H PRN PO PAIN SCALE 1 TO 5 05/18/17 12:45 Acetaminophen/ Hydrocodone Bitart ([place] 10-325 Mg) 2 tab Q4H PRN PO PAIN SCALE 6 TO 10 05/18/17 12:45 05/20/17 08:21 Losartan Potassium (Cozaar) 100 mg DAILY PO 05/19/17 09:00 05/20/17 08:20 Pravastatin Sodium (Pravachol) 40 mg DAILY PO 05/19/17 09:00 05/20/17 08:20 Multivitamins (Theragran) 1 tab DAILY PO 05/19/17 09:00 05/20/17 08:20 Enoxaparin Sodium (Lovenox Inj) 40 mg Q24H SQ 05/19/17 10:00 05/20/17 08:26 (Shruthi Shukla) Medical Decision Making MDM Remarks 56 y/o male s/p L4-L5, L5-S1 laminectomy, interbody arthrodesis using PEEK cage and autologous bone graft, L4-L5, L5-S1 instrumental fixation using transpedicular screws and rods, L4-L5, L5-S1 posterolateral fusion using autologous bone graft and demineralized bone matrix, L3-4 posterolateral fusion using autologous bone graft and demineralized bone matrix on 05/18/17 doing well, post-operative pain controlled (Shruthi Shukla) Plan Plan Remarks cont current pain regimen with BOX COVERER HAND today start mobilizing OOB today with LSO brace, PT consulted dc queen catheter IS every hour SCDs and TEDs, lovenox for dvt prophylaxis anticipate possible dc home with [facility] tomorrow if ambulating and pain controlled (Shruthi Shukla) Attending Statement The exam, history, and the medical decision-making described in the above note were completed with the assistance of the mid-level provider. I reviewed and agree with the findings presented. I attest that I had a [id number] encounter with the patient on the same day, and personally performed and documented my assessment and findings in the medical record. (Preston Lew MD) Shruthi Shukla May 20, 2017 09:29 Preston Lew MD May 23, 2017 21:05
[2017-05-20 12:00] VITALS: BP 131/78; PULSE 89; RESP 19; TEMP 96.9; O2SAT 94
[2017-05-20 13:45] LABS: HEMOGLOBIN A1C 5.4 % (4.3-6.0)
--- NOTE | 2017-05-20 14:08 | HHI.PR ---
Subjective Remarks Patient states feels well. Back pain is under control. Denies cp, sob, cough. Afebrile Objective Vitals Vital Signs Date Time Temp Pulse Resp B/P (MAP) Pulse Ox O2 Delivery O2 Flow Rate FiO2 05/20/17 14:06 18 05/20/17 14:03 18 05/20/17 12:51 18 05/20/17 12:00 96.9 89 19 131/78 (95) 94 05/20/17 08:05 98.3 97 18 128/83 (98) 95 05/20/17 06:00 18 05/20/17 05:30 18 05/20/17 05:00 18 05/20/17 04:50 99.7 96 18 130/79 (96) 97 05/19/17 23:24 98.4 95 19 117/72 (87) 96 05/19/17 22:00 4 05/19/17 20:53 98.0 99 18 114/71 (85) 95 05/19/17 19:16 19 I/O 05/19/17 05/19/17 05/19/17 05/20/17 05/20/17 05/20/17 06:59 14:59 22:59 06:59 14:59 22:59 Intake Total 1919 ml 530 ml 360 ml 1480 ml Output Total 675 ml 1725 ml 600 ml 850 ml Balance 1244 ml -1195 ml -240 ml 630 ml Intake Oral 480 ml 480 ml 360 ml 480 ml IV Total 1439 ml 50 ml 1000 ml Output Urine Total 675 ml 1725 ml 600 ml 850 ml # Bowel Movements 0 0 0 0 Result Diagram: 05/19/17 0536 05/19/17 0536 Imaging Last Impressions Lumbar Spine X-Ray 05/18/17 0000 Signed Impressions: Service Date/Time: Thursday, May 18, 2017 10:02 - CONCLUSION: Postsurgical changes as above. Rick Vines MD Objective Remarks GENERAL: This is a well-nourished, well-developed patient, in no apparent distress. SKIN: No rashes, ecchymoses or lesions. Cool and dry. HEAD: Atraumatic. Normocephalic. No temporal or scalp tenderness. EYES: Pupils equal round and reactive. Extraocular motions intact. No scleral icterus. No injection or drainage. ENT: Nose without bleeding, purulent drainage or septal hematoma. Throat without erythema, tonsillar hypertrophy or exudate. Uvula midline. Airway patent. NECK: Trachea midline. No JVD or lymphadenopathy. Supple, nontender, no meningeal signs. CARDIOVASCULAR: Regular rate and rhythm without murmurs, gallops, or rubs. RESPIRATORY: Clear to auscultation. Breath sounds equal bilaterally. No wheezes , rales, or rhonchi. GASTROINTESTINAL: Abdomen soft, non-tender, nondistended. No hepato-splenomegaly , or palpable masses. No guarding. MUSCULOSKELETAL: Extremities without clubbing, cyanosis, or edema. No joint tenderness, effusion, or edema noted. No calf tenderness. Negative Homans sign bilaterally. NEUROLOGICAL: Awake and alert. Cranial nerves II through XII intact. Motor and sensory grossly within normal limits. Normal speech. Moves all four extremities. Procedures L4-L5, L5-S1 laminectomy, interbody arthrodhesis using PEEK cage and autologous bone graft, L4-L5, L5-S1 instrumental fixation using transpedicular screws and rods, L4-L5, L5-S1 posterolateral fusion using autologous bone graft and demineralized bone matrix. L3-4 posterolateral fusiopn using autologous bone graft and demineralized bone matrix. Microsurgical dissection Medications and IVs Current Medications Medications (Trade) Dose Ordered Sig/Feliberto Route Start Time Stop Time Status Last Admin (Lopressor) 25 mg BUSINESS OFFICE COORDINATOR PRN PO 05/18/17 06:30 05/21/17 06:29 (Betadine 5% Antisepsis Kit) 1 applic BUSINESS OFFICE COORDINATOR PRN EACH NARE 05/18/17 06:30 05/21/17 06:29 05/18/17 06:30 (Chlorhexidine 2% Cloth) 3 pack BUSINESS OFFICE COORDINATOR PRN TOPICAL 05/18/17 06:30 05/21/17 06:29 05/18/17 06:15 Vancomycin HCl 1000 mg/Sodium Chloride 250 ml @ 250 mls/hr BUSINESS OFFICE COORDINATOR IV 05/18/17 06:30 05/18/17 10:56 Sodium Chloride 1,000 ml @ 100 mls/hr Q10H IV 05/18/17 12:35 05/20/17 14:03 (Dulcolax Supp) 10 mg DAILY PRN RECTAL 05/18/17 12:45 (Colace) 100 mg BID PO 05/18/17 21:00 05/20/17 08:20 (Milk Of Magnesia Liq) 30 ml DAILY PRN PO 05/18/17 12:45 05/20/17 08:20 (Protonix) 40 mg DAILY PO 05/19/17 09:00 05/20/17 08:20 (Zofran Inj) 4 mg Q6H PRN IV PUSH 05/18/17 12:45 (Morphine Inj) 2 mg Q2H PRN IV PUSH 05/18/17 12:45 (Flexeril) 10 mg Q8H PRN PO 05/18/17 12:45 05/20/17 08:20 (Catapres) 0.1 mg Q6H PRN PO/NG 05/18/17 12:45 (Tylenol) 650 mg Q4H PRN PO 05/18/17 12:45 05/19/17 18:27 ([place] Jose) 1 lozenge UNSCH PRN BUCCAL 05/18/17 12:45 (Albuterol Neb) 2.5 mg Q4HR NEB PRN INH 05/18/17 12:45 (Narcan Inj) 0.4 mg UNSCH PRN IV PUSH 05/18/17 12:45 (Benadryl Inj) 25 mg Q6H PRN IV PUSH 05/18/17 12:45 (Dilaudid PRODUCTION LINE OPERATOR Inj) 6 mg UNSCH IV 05/18/17 12:45 05/20/17 14:03 PRODUCTION LINE OPERATOR Dosage Infused (Pha) 1 Q8HR .XX 05/18/17 14:00 05/20/17 12:51 ([place] 10-325 Mg) 1 tab Q4H PRN PO 05/18/17 12:45 ([place] 10-325 Mg) 2 tab Q4H PRN PO 05/18/17 12:45 05/20/17 12:50 (Cozaar) 100 mg DAILY PO 05/19/17 09:00 05/20/17 08:20 (Pravachol) 40 mg DAILY PO 05/19/17 09:00 05/20/17 08:20 (Theragran) 1 tab DAILY PO 05/19/17 09:00 05/20/17 08:20 (Lovenox Inj) 40 mg Q24H SQ 05/19/17 10:00 05/20/17 08:26 A/P Problem List: (1) Degenerative disc disease, lumbar ICD Code: M51.36 - Other intervertebral disc degeneration, lumbar region Plan: The patient is status post L4-L5, L5-S1 laminectomy, interbody arthrodesis, segmental fixation using transpedicular screws and rods. L4-L5, L5 -S1 posterolateral fusion using autologous bone graft and demineralized bone matrix. L3-L4 posterolateral fusion using autologous bone graft and demineralized bone matrix. Management as per neurosurgery. Continue pain control as per orthopedic surgery Patient currently on a PRODUCTION LINE OPERATOR morphine pump. Zofran as needed for nausea vomiting. 05/20 start mobilizing OOB today with LSO brace, PT consulted dc queen catheter IS every hour (2) HTN (hypertension) ICD Code: I10 - Essential (primary) hypertension Plan: Blood pressure seems to be stable. Continue losartan and continue to monitor vital signs. (3) Hyperlipidemia ICD Code: E78.5 - Hyperlipidemia, unspecified Plan: Continue statin. Check fasting lipid profile. (4) Hyperglycemia ICD Code: R73.9 - Hyperglycemia, unspecified Plan: Due to stress and pain. Hemoglobin A1c ordered at 5.4. Diabetes ruled out. Assessment and Plan DVT prophylaxis: SCDs and Lovenox subcutaneous. Problem Qualifiers (1) HTN (hypertension): Qualified Codes: I10 - Essential (primary) hypertension (2) Hyperlipidemia: Qualified Codes: E78.5 - Hyperlipidemia, unspecified Adrian Yeung MD May 20, 2017 14:08
[2017-05-20 16:22] VITALS: BP 124/85; PULSE 102; RESP 18; TEMP 99.6; O2SAT 95
[2017-05-20 20:15] VITALS: BP 119/75; PULSE 100; RESP 18; TEMP 99.5; O2SAT 98
[2017-05-20 22:57] VITALS: BP 127/82; PULSE 100; RESP 18; TEMP 99.2; O2SAT 98
[2017-05-21] MEDS: SODIUM CHLOR 0.9% 1000 ML INJ 1,000 ML IV SCH (00:35)
[2017-05-21] MEDS: ACETAMINOPHEN/HYDROcodone 325 MG/10 MG TAB PO PRN ×4 (02:01→14:27)
[2017-05-21] MEDS: PCA - TOTAL MG DILAUDID DELIVERED PER SHIFT SCH ×2 (05:53→09:56)
[2017-05-21] MEDS: HYDROmorphone HCL PCA 6 MG/30 ML IV SCH (06:29)
[2017-05-21 08:00] VITALS: BP 126/85; PULSE 94; RESP 18; TEMP 97.9; O2SAT 98
[2017-05-21] MEDS ORDERED: WALKER WHEELS/F1 MIS (08:34)
[2017-05-21] MEDS ORDERED: HYDR-3583 PO (08:58)
--- NOTE | 2017-05-21 09:13 | HHI.DCPOC ---
Discharge Care Plan Diagnosis: (1) S/P lumbar spinal fusion Goals to Promote Your Health * To prevent worsening of your condition and complications * To maintain your health at the optimal level Directions to Meet Your Goals Take your medications as prescribed Follow your dietary instruction Follow activity as directed Keep your appointments as scheduled Take your immunizations and boosters as scheduled If your symptoms worsen call your PCP, if no PCP go to Urgent Care Center or Emergency Room Smoking is Dangerous to Your Health. Avoid second hand smoke Call the 24-hour hour crisis hotline for domestic abuse at Shruthi Shukla May 21, 2017 09:13
--- NOTE | 2017-05-21 09:15 | HHI.FF ---
Face to Face Verification Diagnosis: (1) S/P lumbar spinal fusion Physical Therapy Order: Improve ambulation, Strength and gait training Home Health Nursing Order: Medical education Medication education-adverse effect Wound care and dressing changes (please see discharge orders for wound care) Nursing assessment with vital signs I have seen patient Michael Mccartney on 05/21/17. My clinical findings support the need for the requested home health care services because: Ltd mobility - disease progression Deconditioned w/ increased weakness I certify that my clinical findings support that this patient is homebound because: Post-op weakness Unsteady gait/balance Shruthi Shukla May 21, 2017 09:15
--- NOTE | 2017-05-21 09:15 | HHI.DS ---
Discharge Summary Admission Date May 18, 2017 at 06:17 Discharge Date: May 21, 2017 Admitting Diagnosis (1) Degenerative disc disease, lumbar ICD Code: M51.36 - Other intervertebral disc degeneration, lumbar region (2) HTN (hypertension) ICD Code: I10 - Essential (primary) hypertension (3) Hyperlipidemia ICD Code: E78.5 - Hyperlipidemia, unspecified (4) Hyperglycemia ICD Code: R73.9 - Hyperglycemia, unspecified Brief History Mr Mccartney is a 56 year-old male who presented with intractable mechanical back pain and case evidence of lower extremity radiculopathy. He has failed maximum nonsurgical management including multiple modalities of conservative treatment as well as pain management interventions by an interventional pain specialist. A surgical decompression and arthrodesis were indicated as a last resort. The [id number] details of the procedure, indications, alternatives, risks and potential complications were fully discussed with the patient. The patient fully understood. All the questions were answered. No guarantees were given. The patient voiced requesting the procedure and provided informed consents. The patient was offered the alternative of delaying the procedure and continuing with nonsurgical management. CBC/BMP: 05/19/17 0536 05/19/17 0536 Significant Findings Laboratory Tests Test 05/19/17 05:36 05/20/17 10:08 Red Blood Count 3.79 MIL/MM3 (4.50-5.90) Hemoglobin 11.5 GM/DL (13.0-17.0) Hematocrit 33.8 % (39.0-51.0) Neutrophils (%) (Auto) 80.1 % (16.0-70.0) Monocytes (%) (Auto) 10.5 % (0.0-8.0) Neutrophils # (Auto) 8.1 TH/MM3 (1.8-7.7) Lymphocytes # (Auto) 0.9 TH/MM3 (1.0-4.8) Monocytes # (Auto) 1.1 TH/MM3 (0-0.9) Random Glucose 121 MG/DL (74-106) Calcium Level 8.1 MG/DL (8.5-10.1) Imaging Last Impressions Lumbar Spine X-Ray 05/18/17 0000 Signed Impressions: Service Date/Time: Thursday, May 18, 2017 10:02 - CONCLUSION: Postsurgical changes as above. Rick Vines MD Hospital Course Date of Surgery: May 18, 2017 Preoperative Diagnosis: L4-5, L5-S1 severe degenerative disk disease, degenerative spondylolithesis Postoperative Diagnosis: L4-5, L5-S1 severe degenerative disk disease, degenerative spondylolithesis Procedure: L4-L5, L5-S1 laminectomy, interbody arthrodhesis using PEEK cage and autologous bone graft, L4-L5, L5-S1 instrumental fixation using transpedicular screws and rods, L4-L5, L5-S1 posterolateral fusion using autologous bone graft and demineralized bone matrix. L3-4 posterolateral fusiopn using autologous bone graft and demineralized bone matrix. Microsurgical dissection Anesthesia: general Surgeon: Preston Lew Review Analyst(s): Judith Shirley Operation and Findings: INDICATIONS FOR THE SURGICAL PROCEDURE Pt Condition on Discharge: Good Discharge Disposition: Disch w/ Home Health Serv Shruthi Shukla May 21, 2017 09:15
[2017-05-21] MEDS: LOSARTAN 50 MG TAB PO SCH (09:55)
[2017-05-21] MEDS: PANTOPRAZOLE SOD 40 MG DELAYED RELEASE TAB PO SCH (09:55)
[2017-05-21] MEDS: PRAVASTATIN SOD 40 MG TAB PO SCH (09:55)
[2017-05-21] MEDS: MAGNESIUM HYDROXIDE SUSP 30 ML CUP PO PRN (09:55)
[2017-05-21] MEDS: MULTIVITAMIN TAB PO SCH (09:55)
[2017-05-21] MEDS: ENOXAPARIN SODIUM 40 MG/0.4 ML SYRINGE SQ SCH (09:56)
[2017-05-21] MEDS: DOCUSATE SODIUM 100 MG CAP PO SCH (09:56)
[2017-05-21 12:00] VITALS: BP 108/61; PULSE 90; RESP 17; TEMP 98.2; O2SAT 98
--- NOTE | 2017-05-21 14:56 | HHI.PR ---
Subjective Remarks Denies chest pain or shortness of breath. Denies fevers or chills. Denies nausea vomiting or abdominal pain. Vital signs stable. Objective Vitals Vital Signs Date Time Temp Pulse Resp B/P (MAP) Pulse Ox O2 Delivery O2 Flow Rate FiO2 05/21/17 12:00 98.2 90 17 108/61 (77) 98 05/21/17 10:55 18 05/21/17 09:56 18 05/21/17 08:00 97.9 94 18 126/85 (99) 98 05/21/17 06:29 18 05/21/17 05:53 18 05/20/17 22:57 99.2 100 18 127/82 (97) 98 05/20/17 22:17 16 05/20/17 21:46 16 05/20/17 20:15 99.5 100 18 119/75 (90) 98 05/20/17 16:22 99.6 102 18 124/85 (98) 95 05/20/17 15:04 18 I/O 05/20/17 05/20/17 05/20/17 05/21/17 05/21/17 05/21/17 07:00 15:00 23:00 07:00 15:00 23:00 Intake Total 1480 ml 960 ml 480 ml 360 ml Output Total 850 ml 350 ml Balance 630 ml 610 ml 480 ml 360 ml Intake Oral 480 ml 960 ml 480 ml 360 ml IV Total 1000 ml Output Urine Total 850 ml 350 ml # Voids 3 3 # Bowel Movements 0 0 0 0 Result Diagram: 05/19/17 0536 05/19/17 0536 Imaging Last Impressions Lumbar Spine X-Ray 05/18/17 0000 Signed Impressions: Service Date/Time: Thursday, May 18, 2017 10:02 - CONCLUSION: Postsurgical changes as above. Rick Vines MD Objective Remarks GENERAL: This is a well-nourished, well-developed patient, in no apparent distress. SKIN: No rashes, ecchymoses or lesions. Cool and dry. HEAD: Atraumatic. Normocephalic. No temporal or scalp tenderness. EYES: Pupils equal round and reactive. Extraocular motions intact. No scleral icterus. No injection or drainage. ENT: Nose without bleeding, purulent drainage or septal hematoma. Throat without erythema, tonsillar hypertrophy or exudate. Uvula midline. Airway patent. NECK: Trachea midline. No JVD or lymphadenopathy. Supple, nontender, no meningeal signs. CARDIOVASCULAR: Regular rate and rhythm without murmurs, gallops, or rubs. RESPIRATORY: Clear to auscultation. Breath sounds equal bilaterally. No wheezes , rales, or rhonchi. GASTROINTESTINAL: Abdomen soft, non-tender, nondistended. No hepato-splenomegaly , or palpable masses. No guarding. MUSCULOSKELETAL: Extremities without clubbing, cyanosis, or edema. No joint tenderness, effusion, or edema noted. No calf tenderness. Negative Homans sign bilaterally. NEUROLOGICAL: Awake and alert. Cranial nerves II through XII intact. Motor and sensory grossly within normal limits. Normal speech. Moves all four extremities. Procedures L4-L5, L5-S1 laminectomy, interbody arthrodhesis using PEEK cage and autologous bone graft, L4-L5, L5-S1 instrumental fixation using transpedicular screws and rods, L4-L5, L5-S1 posterolateral fusion using autologous bone graft and demineralized bone matrix. L3-4 posterolateral fusiopn using autologous bone graft and demineralized bone matrix. Microsurgical dissection Medications and IVs Current Medications Medications (Trade) Dose Ordered Sig/Feliberto Route Start Time Stop Time Status Last Admin Vancomycin HCl 1000 mg/Sodium Chloride 250 ml @ 250 mls/hr [facility] IV 05/18/17 06:30 05/18/17 10:56 (Dulcolax Supp) 10 mg DAILY PRN RECTAL 05/18/17 12:45 (Colace) 100 mg BID PO 05/18/17 21:00 05/21/17 09:56 (Milk Of Magnesia Liq) 30 ml DAILY PRN PO 05/18/17 12:45 05/21/17 09:55 (Protonix) 40 mg DAILY PO 05/19/17 09:00 05/21/17 09:55 (Zofran Inj) 4 mg Q6H PRN IV PUSH 05/18/17 12:45 (Morphine Inj) 2 mg Q2H PRN IV PUSH 05/18/17 12:45 (Flexeril) 10 mg Q8H PRN PO 05/18/17 12:45 05/20/17 19:49 (Catapres) 0.1 mg Q6H PRN PO/NG 05/18/17 12:45 (Tylenol) 650 mg Q4H PRN PO 05/18/17 12:45 05/19/17 18:27 (Combined [place]) 1 lozenge UNSCH PRN BUCCAL 05/18/17 12:45 (Albuterol Neb) 2.5 mg Q4HR NEB PRN INH 05/18/17 12:45 (Narcan Inj) 0.4 mg UNSCH PRN IV PUSH 05/18/17 12:45 (Benadryl Inj) 25 mg Q6H PRN IV PUSH 05/18/17 12:45 B[employer] Dosage Infused (Pha) 1 Q8HR .XX 05/18/17 14:00 05/21/17 05:53 ([place] 10-325 Mg) 1 tab Q4H PRN PO 05/18/17 12:45 05/20/17 22:05 ([place] 10-325 Mg) 2 tab Q4H PRN PO 05/18/17 12:45 05/21/17 14:27 (Cozaar) 100 mg DAILY PO 05/19/17 09:00 05/21/17 09:55 (Pravachol) 40 mg DAILY PO 05/19/17 09:00 05/21/17 09:55 (Theragran) 1 tab DAILY PO 05/19/17 09:00 05/21/17 09:55 (Lovenox Inj) 40 mg Q24H SQ 05/19/17 10:00 05/21/17 09:56 A/P Problem List: (1) Degenerative disc disease, lumbar ICD Code: M51.36 - Other intervertebral disc degeneration, lumbar region Plan: The patient is status post L4-L5, L5-S1 laminectomy, interbody arthrodesis, segmental fixation using transpedicular screws and rods. L4-L5, L5 -S1 posterolateral fusion using autologous bone graft and demineralized bone matrix. L3-L4 posterolateral fusion using autologous bone graft and demineralized bone matrix. Management as per neurosurgery. Continue pain control as per orthopedic surgery Patient currently on a [employer] morphine pump. Zofran as needed for nausea vomiting. Patient cleared to be discharged as per orthopedic surgery. (2) HTN (hypertension) ICD Code: I10 - Essential (primary) hypertension Plan: Blood pressure seems to be stable. Continue losartan and continue to monitor vital signs. (3) Hyperlipidemia ICD Code: E78.5 - Hyperlipidemia, unspecified Plan: Continue statin. Check fasting lipid profile. (4) Hyperglycemia ICD Code: R73.9 - Hyperglycemia, unspecified Plan: Due to stress and pain. Hemoglobin A1c ordered at 5.4. Diabetes ruled out. Assessment and Plan DVT prophylaxis: SCDs and Lovenox subcutaneous. Discharge Planning Cleared to be discharged by hospitalist. Problem Qualifiers (1) HTN (hypertension): Qualified Codes: I10 - Essential (primary) hypertension (2) Hyperlipidemia: Qualified Codes: E78.5 - Hyperlipidemia, unspecified Adrian Yeung MD May 21, 2017 14:56
== END 2017-05-21 17:07 | disposition home health service (06) | DRG 460 ==
LOC: HSDI 06:17 → EDUNIT# 08:30 → N06B 18:16
PROVIDERS: ADMIT Neurological Surgery; ATTEND Neurological Surgery
PROC: 0SG307J Fusion of Lumbosacral Joint with Autologous Tissue Substitute, Posterior Approach, Anterior Column, Open Approach (ICD-10-PCS; 2017-05-18)
PROC: 0QB20ZZ Excision of Right Pelvic Bone, Open Approach (ICD-10-PCS; 2017-05-18)
PROC: 01NB0ZZ Release Lumbar Nerve, Open Approach (ICD-10-PCS; 2017-05-18)
PROC: 0SB40ZZ Excision of Lumbosacral Disc, Open Approach (ICD-10-PCS; 2017-05-18)
PROC: 4A11X4G Monitoring of Peripheral Nervous Electrical Activity, Intraoperative, External Approach (ICD-10-PCS; 2017-05-18)
PROC: 0SG00AJ Fusion of Lumbar Vertebral Joint with Interbody Fusion Device, Posterior Approach, Anterior Column, Open Approach (ICD-10-PCS; principal; 2017-05-18 08:26)
DX: M51.17 Intervertebral disc disorders with radiculopathy, lumbosacral region (principal); I10 Essential (primary) hypertension; M43.17 Spondylolisthesis, lumbosacral region; E78.5 Hyperlipidemia, unspecified; R73.9 Hyperglycemia, unspecified; Z87.891 Personal history of nicotine dependence; Z23 Encounter for immunization
CPT/HCPCS: 72100; 76000; 80048; 83036; 85025; 86850; 86900; 86901; 90686; 90732; 94150; C1713; J0131; J0690; J1100; J1170; J1580; J1644; J1650; J1885; J2175; J2250; J2270; J2370; J2405; J3010; J3370; J7030; J7050; J7120; L0484; Q2038